=== PATIENT | female | born 1945 | race Caucasian/White ===

== ENCOUNTER 2016-12-07 22:26 | Inpatient (IN) | payer MEDICARE, OTHER ==
[~2016-12-07] VITALS: Ht 165.1 cm; Wt 69.1 kg
[2016-12-08] VITALS (7 sets, daily range): BP systolic 118–170; BP diastolic 49–68; Ht 165.1 cm; Wt 69.1 kg
[2016-12-08 00:15] LABS: BASOPHILS 0.1 % (0-2); EOSINOPHILS 1.3 % (0-7); HEMATOCRIT 36.9 % (36.0-48.0); IMMATURE GRANULOCYTES 0.2 % (0-5); LYMPHOCYTES 9.5 % (15-50); MCH 30.6 pg (26.0-34.0); MCHC 32.5 g/dL (31.0-37.0); MCV 94.1 fL (80.0-100.0); MEAN PLATELET VOLUME 11.1 fL (7.4-10.4); MONOCYTES 9.3 % (2-11); NEUTROPHILS 79.6 % (40-80); PLATELET COUNT 183 10x3/uL (130-400); RBC 3.92 10x6/uL (4.00-5.40); RDW 13.8 % (11.5-14.5); WBC 14.2 10x3/uL (4.8-10.8)
--- NOTE | 2016-12-08 00:30 | NUR ---
PATIENT RECEIVED TO ROOM FROM [place] WITH HOSPITAL STAFF. AAOX4. RR EVEN AND UNLABORED. 0 S/S OF DISTRESS. STATES PAIN IS A 4/10. IV TO RIGHT AC PATENT WITH NO REDNESS OR SWELLING. SPOKE WITH DR. BEVERLY. OBTAINED ORDERS.
[2016-12-08] MEDS ORDERED: PRINIVIL20 MG PO (00:57)
[2016-12-08] MEDS ORDERED: REGLAN5 MG PO (00:57)
[2016-12-08] MEDS ORDERED: MULTIPLE VITAMI1 TA1 PO (00:59)
[2016-12-08] MEDS ORDERED: ATIVAN1 MG PO (00:59)
[2016-12-08 07:15] LABS: ANION GAP 13.2 mmol/L (8-16); CALCIUM 8.5 mg/dL (8.5-10.1); CARBON DIOXIDE 23.6 mmol/L (21.0-32.0); POTASSIUM - SERUM 3.8 mmol/L (3.5-5.1)
--- NOTE | 2016-12-08 07:15 | NUR ---
PATIENT RESTING QUIETLY IN THE BED. EYES ARE CLOSED. NO S/S OF DISTRESS NOTED. CALL LIGHT IN PATIENT'S REACH. WILL MONITOR PATIENT.
--- NOTE | 2016-12-08 12:12 | NUR ---
NEW ORDERS RECEIVED. MINERAL MIXER DILAUDID STARTED AT 0.2 MG IV EVERY 10 MINUTES PRN WITH A 4MG IV/4 HOUR LOCKOUT. INSTRUCTED PATIENT ON MINERAL MIXER PUMP USE AND PATIENT VERBALIZED UNDERSTANDING. PATIENT DENIES ANY NEEDS AT PRESENT TIME. CALL LIGHT IN PATIENT'S REACH. WILL MONITOR PATIENT.
--- NOTE | 2016-12-08 13:58 | NUR ---
PATIENT IS RESTING IN THE BED. LOTS OF FRIENDS AT PATIENT'S BEDSIDE. PATIENT DENIES ANY NEEDS AT PRESENT TIME. PATIENT IS NPO. PATIENT IS USING DATA PROCESSING AUDITOR DILAUDID FOR HER PAIN CONTROL. CALL LIGHT IN PATIENT'S REACH. WILL MONITOR PATIENT.
--- NOTE | 2016-12-08 17:07 | NUR ---
PATIENT RESTING IN BED. SCHEDULED TYLENOL ES GIVEN TO PATIENT. PATIENT RATES HER PAIN LEVEL A "3" ON A 0-10 SCALE. PATIENT DENIES ANY NEEDS AT PRESENT TIME. CALL LIGHT IN PATIENT'S REACH. WILL MONITOR.
--- NOTE | 2016-12-08 19:55 | NUR ---
PATIENT ON NEB TREATMENT AND DENIES NEEDS AT THIS TIME. PATIENT'S BED IN LOWEST POSITION AND CALL LIGHT WITHIN REACH. ENCOURAGED THE PATIENT TO CALL IF SHE HAS NEEDS.
[2016-12-09] VITALS: BP 115/47
[2016-12-09 04:00] VITALS: BP 103/42
[2016-12-09 08:14] VITALS: BP 104/42
--- NOTE | 2016-12-09 09:15 | NUR ---
WILMAR BARROW. CALL LIGHT IN REACH.
--- NOTE | 2016-12-09 09:53 | NUR ---
DIFLUCAN IVPB AND LOVENOX SUBQ
[2016-12-09 10:27] LABS: BASOPHILS 0.6 % (0-2); EOSINOPHILS 2.5 % (0-7); HEMATOCRIT 34.9 % (36.0-48.0); HEMOGLOBIN 11.3 g/dL (12-16); IMMATURE GRANULOCYTES 0.8 % (0-5); LYMPHOCYTES 8.9 % (15-50); MCH 30.7 pg (26.0-34.0); MCHC 32.4 g/dL (31.0-37.0); MCV 94.8 fL (80.0-100.0); MEAN PLATELET VOLUME 11.8 fL (7.4-10.4); MONOCYTES 6.8 % (2-11); NEUTROPHILS 80.4 % (40-80); RBC 3.68 10x6/uL (4.00-5.40); RDW 14.4 % (11.5-14.5)
[2016-12-09 10:28] LABS: PLATELET COUNT 136 10x3/uL (130-400); WBC 8.7 10x3/uL (4.8-10.8)
[2016-12-09 10:32] LABS: ANION GAP 16.5 mmol/L (8-16); CALCIUM 7.8 mg/dL (8.5-10.1); CARBON DIOXIDE 18.2 mmol/L (21.0-32.0); MAGNESIUM - SERUM 2.3 mg/dL (1.8-2.4); POTASSIUM - SERUM 3.7 mmol/L (3.5-5.1)
--- NOTE | 2016-12-09 10:48 | HP ---
PATIENT: LOLI BUCKLEY MEDICAL RECORD: [id number] ACCOUNT: [id number] LOCATION:[facility] : 41 ADMISSION DATE: 12/07/16 HISTORY AND PHYSICAL EXAMINATION DATE OF ADMISSION: 12/08/2016 CHIEF COMPLAINT: Abdominal pain. HISTORY OF PRESENT ILLNESS: A 71-year-old female who developed acute onset of epigastric and left upper quadrant pain that radiates to her shoulders yesterday afternoon. The pain, actual onset, was constant in nature. She describes it as sharp and stabbing. This morning, she describes the pain as 6/10. In the [facility] today, an x-ray revealed free air under the hemidiaphragms. A CT scan performed with IV and oral contrast also showed free air under the hemidiaphragms. There is no stranding around the colon. There is no stranding around her previous Susan fundoplication. The patient was admitted to the hospital 2 months ago for an episode of spontaneous pneumoperitoneum, at which time she underwent an EGD, barium swallow, gastric emptying study and CT scan, which revealed no evidence of perforation. The patient does have a history of peptic ulcer disease. PAST MEDICAL HISTORY: Gastroparesis, dysphagia, gastroesophageal reflux disease. PAST SURGICAL HISTORY: Hysterectomy, right breast tumor, Susan fundoplication, EGD. ALLERGIES: PENICILLIN. HOME MEDICATIONS: Lisinopril, magnesium oxide, melatonin, omeprazole, MiraLax and Reglan. FAMILY HISTORY: Her parents have cardiovascular disease and lung disease. SOCIAL HISTORY: She has never been a smoker. She does not drink alcohol. REVIEW OF SYSTEMS: A 12-point review of systems was obtained, pertinent positive and negative as per the HPI. PHYSICAL EXAMINATION: VITAL SIGNS: Temperature 98.1, heart rate 93, respirations 16, blood pressure 118/49. GENERAL: This is a well-developed, well-nourished female in moderate distress. PSYCHIATRIC: She is alert and oriented times 3. EYES: Extraocular muscles are intact. EAR, NOSE, AND THROAT: Normal dentition. NECK: Supple. CARDIOVASCULAR: She has normal sinus rhythm. No murmur. LUNGS: Clear auscultation bilaterally. ABDOMEN: Soft, nondistended. She is mildly tender to palpation in the right upper quadrant, left upper quadrant and epigastrium. No tenderness in the lower quadrants. She is not tympanic. No hernia defects. SKIN: Warm and dry. Normal turgor. EXTREMITIES: Neurovascularly intact. No edema. HISTORY AND PHYSICAL [id number] LOLI BUCKLEY NEUROLOGIC: GCS 15. No focal deficits. LABORATORY DATA: Reviewed. White count 14,000, hematocrit 37, hemoglobin 12. Sodium 142, potassium 3.8, chloride 109, CO2 of 24, BUN 20, creatinine 1. CT abdomen and pelvis images were personally reviewed as well as barium swallow and abdominal x-ray. There is no evidence of perforation. There is free air in both hemidiaphragms. There is some air tracking along the area of previous fundoplasty. There is no evidence of diverticulitis on CT scan. There is really no apparent inflammation around the duodenum or stomach as well. IMPRESSION: This is a 71-year-old female with recurrence of pneumoperitoneum with history of Susan fundoplication, gastroparesis. PLAN: 1. Admit the patient to med-surg. 2. IV fluid resuscitation. 3. IV narcotics for pain control. 4. IV broad-spectrum antibiotics. 5. Blood cultures. 6. N.p.o., bowel rest, serial abdominal exams. TRANSINT:[id number] Voice Confirmation ID: [id number] DOCUMENT ID: [id number] ARIEL BEVERLY MD at 1048 CC: [id number] DICTATION DATE: 12/08/16 0937 EQUAL OPPORTUNITY COUNSELOR: 12/08/16 1207 ADM IN [place] [address] [place] [address]
[2016-12-09 15:20] VITALS: BP 110/64
[2016-12-09 20:00] VITALS: BP 156/68
--- NOTE | 2016-12-09 20:48 | NUR ---
PATIENT RESTING IN BED WITH NO SIGNS OF DISTRESS. BED IN LOWEST POSITION AND CALL LIGHT WITHIN REACH. ENCOURAGED THE PATIENT TO CALL IF SHE HAS NEEDS.
[2016-12-10 04:00] VITALS: BP 138/65
[2016-12-10 05:45] LABS: BASOPHILS 0.3 % (0-2); EOSINOPHILS 5.7 % (0-7); HEMATOCRIT 33.1 % (36.0-48.0); HEMOGLOBIN 10.7 g/dL (12-16); IMMATURE GRANULOCYTES 0.3 % (0-5); LYMPHOCYTES 15.1 % (15-50); MCH 30.7 pg (26.0-34.0); MCHC 32.3 g/dL (31.0-37.0); MCV 95.1 fL (80.0-100.0); MEAN PLATELET VOLUME 11.3 fL (7.4-10.4); MONOCYTES 9.7 % (2-11); NEUTROPHILS 68.9 % (40-80); RBC 3.48 10x6/uL (4.00-5.40); RDW 14.5 % (11.5-14.5); WBC 6.9 10x3/uL (4.8-10.8)
[2016-12-10 06:02] LABS: CALCIUM 7.8 mg/dL (8.5-10.1); CREATININE - SERUM 1.1 mg/dL (0.6-1.3)
[2016-12-10 06:07] LABS: PLATELET COUNT 200 10x3/uL (130-400)
[2016-12-10 06:20] LABS: CARBON DIOXIDE 24.1 mmol/L (21.0-32.0); POTASSIUM - SERUM 3.1 mmol/L (3.5-5.1)
--- NOTE | 2016-12-10 07:45 | NUR ---
SCHEDULED ZOSYN HUNG AT THIS TIME PER ORDER. PT SLEEING WITH RESPIRATIONS EVEN AND NON LABORED. CALL LIGHT IN REACH, WILL CONTINU WITH PLAN OF CARE.
--- NOTE | 2016-12-10 08:24 | NUR ---
SCHEDULED MEDICATIONS ADMINISTERED AT THIS TIME AND ELECTROLYTE PROTOCOL INITIATED FOR POTASSIUM OF 3.1. ASSESSMENT PERFORMED PER FLOWSHEET AND IV PATENT. DENIES NEEDS OR PAIN AT THIS TIME. CALL LIGHT IN REACH, WILL CONTINUE WITH PLAN OF CARE.
[2016-12-10 09:51] VITALS: BP 153/69
--- NOTE | 2016-12-10 10:00 | NUR ---
IV DISCONNECTED SO THAT PT COULD TAKE A SHOWER AT THIS TIME. PATTERN STAMPER TO ASSIST WITH BATH.
--- NOTE | 2016-12-10 10:19 | NUR ---
Patient Name: LOLI BUCKLEY Admission Status: ER Accout number: [id number] Admission Date: 12-07-2016 : 1945 Admission Diagnosis: Attending: SASHA Current LOS: 3 Anticipated DC Date: 12-13-2016 Planned Disposition: Home Primary Insurance: MEDICARE A & B Discharge Planning Comments: CM MET WITH PATIENT REGARDING D/C NEEDS AND PLANS. PATIENT STATED SHE LIVES ALONE AND IT IS SAFE. PATIENT STATED SOMEONE IN HER FAMILY WILL DRIVE HER HOME WHEN DISCHARGED. PATIENT HAS 1 STEP TO ENTER HOME AND NO STAIRS INSIDE. PATIENT IS INDEPENDENT WITH HER CARE AND HAS NO DME AT HOME. PATIENTS PCP IS DR. ANNIKA BELTRÁN IN [place] AND SHE USES [facility] IN [place]. PATIENT DOES NOT WANT HOME HEALTH AT THIS TIME. CM WILL CONTINUE TO FOLLOW PATIENT WITH D/C NEEDS AND PLANS. PCP DR. ANNIKA BELTRÁN [facility] IN [place]- [phone] SUNDEEP DUDLEY (SISTER) [phone] CHACHO DALAL (SISTER IN LAW) [phone] Certified Substance Abuse Counselor: Isabell Spain
--- NOTE | 2016-12-10 10:20 | NUR ---
Is the patient Alert and Oriented? Yes 0 * How many steps to enter\exit or inside your home? 1 0 * PCP DR. ANNIKA BELTRÁN 0 * Pharm[facility] [place] 0 * Preadmission Environment Home Alone 0 * ADLs Independent 0 * Equipment None 0 * List name and contact numbers for known caregivers / representatives who currently or will assist patient after discharge: SUNDEEP DUDLEY (SISTER) [phone] CHACHO DALAL (SISTER IN [employer]) [phone] * Community resources currently utilized None 0 * Additional services required to return to the preadmission environment? Yes 0 * Can the patient safely return to the preadmission environment? Yes 0 * Has this patient been hospitalized within the prior 30 days at any hospital? No 0 Grand Total: 0
--- NOTE | 2016-12-10 10:56 | NUR ---
PROTONIX ADMINISTERED PER ORDER AND PT RECONNECTED TO IV SHE IS OUT OF THE SHOWER AT THIS TIME. DENIES FURTHER NEEDS. CALL LIGHT IN REACH, WILL CONTINUE WITH PLAN OF CARE.
[2016-12-10 12:59] VITALS: BP 144/61
--- NOTE | 2016-12-10 15:00 | NUR ---
DENIES NEEDS AT THIS TIME. CALL LIGHT IN REACH, WILL CONTINUE WITH PLAN OF CARE.
[2016-12-10 17:02] VITALS: BP 168/73
[2016-12-10 19:00] VITALS: BP 168/78
--- NOTE | 2016-12-10 19:56 | NUR ---
PATIENT RESTING IN BED AND DENIES NEEDS AT THIS TIME. ASSESSMENT COMPLETE. BED IN LOWEST POSITION AND CALL LIGHT WITHIN REACH. ENCOURAGED THE PATIENT TO CALL IF SHE HAS NEEDS.
[2016-12-11 04:00] VITALS: BP 150/63
[2016-12-11 06:11] LABS: BASOPHILS 0.5 % (0-2); EOSINOPHILS 6.9 % (0-7); HEMATOCRIT 34.1 % (36.0-48.0); HEMOGLOBIN 11.1 g/dL (12-16); IMMATURE GRANULOCYTES 0.3 % (0-5); LYMPHOCYTES 18.8 % (15-50); MCH 30.7 pg (26.0-34.0); MCHC 32.6 g/dL (31.0-37.0); MCV 94.5 fL (80.0-100.0); MONOCYTES 12.1 % (2-11); NEUTROPHILS 61.4 % (40-80); PLATELET COUNT 229 10x3/uL (130-400); RBC 3.61 10x6/uL (4.00-5.40); RDW 14.6 % (11.5-14.5); WBC 6.5 10x3/uL (4.8-10.8)
[2016-12-11 06:31] LABS: ANION GAP 13.9 mmol/L (8-16); CALCIUM 8.5 mg/dL (8.5-10.1); CARBON DIOXIDE 22.6 mmol/L (21.0-32.0); CREATININE - SERUM 1.1 mg/dL (0.6-1.3); MAGNESIUM - SERUM 2.2 mg/dL (1.8-2.4); POTASSIUM - SERUM 3.5 mmol/L (3.5-5.1)
--- NOTE | 2016-12-11 07:48 | NUR ---
SLEEPING AT THIS TIME WITH RESPIRATIONS EVEN AND NON LABORED. CALL LIGHT IN REACH, WILL CONTINUE WITH PLAN OF CARE.
[2016-12-11 08:32] VITALS: BP 150/75
--- NOTE | 2016-12-11 08:45 | NUR ---
SCHEDULED MEDICATIONS ADMINISTERED AT THIS TIME AND ASSESSMENT PERFORMED PER FLOWSHEET. PT TO D/C HOME TODAY. ELECTROLYTE PROTOCOL INITIATED PER PROTOCOL FOR POTASSIUM OF 3.5. PT DENIES PAIN OR NEEDS. WILL CONTINUE WITH PLAN OF CARE. CALL LIGHT IN REACH.
--- NOTE | 2016-12-11 08:46 | NUR ---
CM REASSESSMENT NOTE: PATIENT IS DISCHARGING HOME TODAY. PATIENTS COUSIN (CHRISTINA) IS DRIVING HER. PATIENT HAS REFUSED HOME HEALTH OR ANY OTHER NEEDS FOR D/C.
--- NOTE | 2016-12-11 10:15 | NUR ---
D/C PAPERWORK REVIEWED WITH PT AND IV D/C WITH CATH TIP INTACT. DENIES QUESTIONS OR CONCERNS RELATED TO D/C. WILL D/C HOME WITH FRIEND.
== END 2016-12-11 11:30 | disposition home or self-care (01) | DRG 395 ==
LOC: D.ER 22:26 → D.MS 23:49 → EDBD 23:49 → D.MS 12-11 11:30
PROVIDERS: Emergency Medicine; Surgery; ADMIT Surgery
DX: K66.8 Other specified disorders of peritoneum (principal); K31.84 Gastroparesis; Z98.890 Other specified postprocedural states